=== PATIENT | female | born 1975 | race Caucasian/White ===

== ENCOUNTER 2017-08-04 16:53 | Emergency (ER) | payer OTHER ==
[~2017-08-04] VITALS: Ht 160 cm; Wt 90.0 kg
[2017-08-04 16:57] VITALS: Ht 160 cm; Wt 90.0 kg
[2017-08-04] MEDS ORDERED: LORAZEPAM 2 MG INJ IV ONE (17:30)
[2017-08-04] MEDS ORDERED: SOD CHLORIDE 0.9% 1,000 ML IV STA (17:30)
[2017-08-04 17:51] LABS: ABNORMAL IP MESSAGE 1; HEMATOCRIT 29.8 % (37.0-47.0); HEMOGLOBIN 8.5 g/dl (12.0-16.0); MEAN CORPUSCULAR HEMOGLOBIN 17.5 pg (29.0-33.0); MEAN CORPUSCULAR HGB CONC 28.5 g/dl (32.0-37.0); MEAN CORPUSCULAR VOLUME 61.4 fl (82.0-101.0); MEAN PLATELET VOLUME 10.2 fl (7.4-10.4); PLATELET COUNT 767 10^3/UL (140-415); RED BLOOD COUNT 4.85 10^6/ul (4.20-5.40); RED CELL DISTRIBUTION WIDTH 21.3 % (11.5-14.5); WHITE BLOOD COUNT 13.8 10^3/ul (4.8-10.8)
[2017-08-04 17:54] LABS: POSITIVE DIFF @See below
[2017-08-04 18:08] LABS: INR 0.93; PROTIME 12.5 Sec (12.2-14.2)
[2017-08-04 18:09] LABS: PARTIAL THROMBOPLASTIN TIME 31.8 Sec (25.0-35.0)
[2017-08-04 18:12] LABS: ALANINE AMINOTRANSFERASE 23 IU/L (13-69); ALBUMIN 5.1 g/dl (3.3-4.9); ALBUMIN/GLOBULIN RATIO 1.41; ALKALINE PHOSPHATASE 84 IU/L (42-121); ANION GAP 19 (8-16); ASPARTATE AMINO TRANSFERASE 19 IU/L (15-46); BILIRUBIN,INDIRECT 0.6 mg/dl (0-1.1); BILIRUBIN,TOTAL 0.6 mg/dl (0.2-1.3); BLOOD UREA NITROGEN 17 mg/dl (7-20); CALCIUM 9.5 mg/dl (8.4-10.2); CARBON DIOXIDE 22 mmol/L (21-31); CHLORIDE 105 mmol/L (97-110); CREATININE 1.11 mg/dl (0.44-1.00); GLUCOSE 102 mg/dl (70-220); POTASSIUM 3.7 mmol/L (3.5-5.1); SODIUM 142 mmol/L (135-144); TOTAL PROTEIN 8.7 g/dl (6.1-8.1)
[2017-08-04] MEDS ORDERED: CELE100C PO (18:16)
[2017-08-04 18:21] LABS: ANISOCYTOSIS 2+ (0-0); EOSINOPHILS % (M) 2 % (0-7); HYPOCHROMASIA 3+ (0-0); MICROCYTOSIS 2+ (0-0); MONOCYTES % (M) 9 % (0-11); OVALOCYTES 1+ (0-0); PLATELET ESTIMATE INCREASED; POIKILOCYTOSIS 2+ (0-0); POLYCHROMASIA 2+ (0-0)
[2017-08-04 18:28] LABS: TROPONIN-I < 0.012 ng/ml (0.00-0.12)
--- NOTE | 2017-08-04 18:37 | ERD ---
ER Documentation Chief Complaint Chief Complaint sent by pmd for low hemoglobin HPI This is a 41-year-old female with a history of anemia, and heavy menstrual periods who presents to the emergency room for evaluation of low hemoglobin. This patient states that she was at her primary care physician's office this morning and they "checked my finger blood levels" she was told that her blood count was low when she came to the ER for evaluation. The patient states she is not her menstrual cycle at this time and states that she was prescribed vitamin, and iron supplementation however she has not filled her prescription as of yet. The patient denies any blood in her stool and came to the ER for evaluation. The patient does state that she has a history of anxiety and is currently having an anxiety attack ROS All systems reviewed and are negative except as per history of present illness. Medications Home Meds Reported Medications Celecoxib* (Celebrex*) 100 Mg Capsule, 100 MG PO DAILY, CAP 08/04/17 Allergies Allergies: Coded Allergies: No Known Allergy (Unverified , 08/04/17) PMhx/Soc History of Surgery: Yes () Hx Alcohol Use: No Hx Substance Use: No Hx Tobacco Use: No Smoking Status: Never smoker Physical Exam Vitals Vital Signs Date Time Temp Pulse Resp B/P Pulse Ox O2 Delivery O2 Flow Rate FiO2 08/04/17 17:48 Nasal Cannula 08/04/17 16:57 98.9 106 18 148/69 99 Physical Exam INITIAL VITAL SIGNS: Reviewed by me GENERAL: The patient is well developed and appropriate for usual state of health, moderate distress HEENT: Pupils equal, round, and reactive to light. EOMI. There is no scleral icterus. NECK: C-spine is soft and supple, there is no meningismus. There is no cervical lymphadenopathy. LUNGS: Clear to auscultation bilaterally. There are no rales, wheezes or rhonchi. HEART: Regular rate and rhythm, no murmurs, clicks, rubs or gallops. ABDOMEN: Soft, non-tender, non-distended. There are bowel sounds in all four quadrants. No rebound or guarding. EXTREMITIES: There is no peripheral cyanosis or edema. No focal swelling or erythema. NEUROLOGICAL: The patient moves all four extremities with 5/5 strength. Cranial nerves II - XII are intact. Normal gait. Alert and oriented SKIN: There is no apparent rash or petechiae. HEME/LYMPHATIC: There is no evidence of excessive bruising or lymphedema. PSYCHIATRIC: The patient is extremely anxious Result Diagram: 08/04/17173908/04/171739 Results 24 hrs Laboratory Tests Test 08/04/17 17:40 White Blood Count 13.810^3/ul Red Blood Count 4.8510^6/ul Hemoglobin 8.5g/dl Hematocrit 29.8% Mean Corpuscular Volume 61.4fl Mean Corpuscular Hemoglobin 17.5pg Mean Corpuscular Hemoglobin Concent 28.5g/dl Red Cell Distribution Width 21.3% Platelet Count 80663^3/UL Mean Platelet Volume 10.2fl Neutrophils % % Segmented Neutrophils % (Manual) 65% Lymphocytes % % Lymphocytes % (Manual) 24% Monocytes % % Monocytes % (Manual) 9% Eosinophils % % Eosinophils % (Manual) 2% Basophils % % Nucleated Red Blood Cells % 0.0/100WBC Neutrophils # 10^3/ul Absolute Lymphocytes (Manual) 3.310^3/ul Lymphocytes # 10^3/ul Monocytes # 10^3/ul Absolute Monocytes (Manual) 1.210^3/ul Eosinophils # 10^3/ul Basophils # 10^3/ul Nucleated Red Blood Cells # 10^3/ul Platelet Estimate INCREASED Polychromasia 2+ Hypochromasia 3+ Poikilocytosis 2+ Anisocytosis 2+ Microcytosis 2+ Ovalocytes 1+ Prothrombin Time 12.5Sec Prothrombin Time Ratio 1.0 INR International Normalized Ratio 0.93 Activated Partial Thromboplast Time 31.8Sec Sodium Level 142mmol/L Potassium Level 3.7mmol/L Chloride Level 105mmol/L Carbon Dioxide Level 22mmol/L Anion Gap 19 Blood Urea Nitrogen 17mg/dl Creatinine 1.11mg/dl Glucose Level 102mg/dl Calcium Level 9.5mg/dl Total Bilirubin 0.6mg/dl Direct Bilirubin 0.00mg/dl Indirect Bilirubin 0.6mg/dl Aspartate Amino Transf (AST/SGOT) 19IU/L Alanine Aminotransferase (ALT/SGPT) 23IU/L Alkaline Phosphatase 84IU/L Troponin I < 0.012ng/ml Total Protein 8.7g/dl Albumin 5.1g/dl Globulin 3.60g/dl Albumin/Globulin Ratio 1.41 Current Medications Medications (Trade) Dose Ordered Sig/Wes Route PRN Reason Start Time Stop Time Status Last Admin Dose Admin Sodium Chloride (NS) 1,000 ml @ 1,000 mls/hr Q1H STAT IV 08/04/17 17:30 08/04/17 18:29 DC 08/04/17 17:40 Lorazepam (Ativan) 1 mg ONCE ONCE IV 08/04/17 17:30 08/04/17 17:31 DC 08/04/17 17:40 Procedures/MDM EKG: Rate/Rhythm: [Normal Sinus Rhythm] QRS, ST, T-waves: [No changes consistent w/ acute ischemia] Impression: [No evidence of ischemia or arrhythmia] This 41-year-old female presents to the ER for evaluation of low hemoglobin. She was at her primary care physician's office earlier in the day and was diagnosed with anemia from a fingerstick hemoglobin. She states that the level was 7.1. When I evaluated this patient she was hemodynamic stable, she however was suffering from anxiety attack and was extremely anxious and was hyperventilating. The patient was given 1 mg of Ativan IV. Lab work was obtained and lab work does show microcytic anemia however her hemoglobin level is 8.5. The patient has no active bleeding at this time. I advised patient that she could have encountered a lab error prior to coming to the emergency room. The patient is in no acute distress at this time will be discharged home with instructions to follow-up with her primary care physician and to fill the prescription for iron. She verbalized understanding and is okay to plan of care. Departure Diagnosis: Primary Impression: Microcytic anemia Additional Impression: Anxiety attack Condition: Stable CAROLYNN CERNA DO Aug 04, 2017 18:37
[2017-08-04 18:58] VITALS: BP 110/70; PULSE 75; RESP 15
== END 2017-08-04 18:59 | disposition home or self-care (01) ==
LOC: E/R 16:53
DX: D50.9 Iron deficiency anemia, unspecified (principal); R07.9 Chest pain, unspecified
CPT/HCPCS: 36415; 80053; 84484; 85025; 85610; 85730; 86850; 86900; 86901; 93005; 96374; J2060; J7030; Z7502

== ENCOUNTER 2017-12-27 12:01 | Emergency (ER) | END 2017-12-27 17:35 | disposition home or self-care (01) ==

== ENCOUNTER 2018-02-14 05:21 | Inpatient (IN) | END 2018-02-16 20:55 | disposition home or self-care (01) | DRG 743 ==